=== PATIENT | female | born 1935 | race Caucasian/White ===

== ENCOUNTER 2020-11-30 11:57 | Emergency (ER) | payer MEDICARE ==
[~2020-11-30] VITALS: Ht 165.1 cm; Wt 68.0 kg
[2020-11-30] MEDS ORDERED: LEVO-T100 MCG PO (12:39)
[2020-11-30 16:38] VITALS: BP 157/68
== END 2020-11-30 16:38 | disposition home or self-care (01) ==
LOC: M.ERS 11:57
DX: S01.01XA Laceration without foreign body of scalp, initial encounter (principal); Z88.2 Allergy status to sulfonamides; Z88.1 Allergy status to other antibiotic agents; Z88.8 Allergy status to other drugs, medicaments and biological substances; W18.39XA Other fall on same level, initial encounter; Y93.89 Activity, other specified; Y92.89 Other specified places as the place of occurrence of the external cause; Y99.8 Other external cause status

== ENCOUNTER 2020-12-07 06:56 | Emergency (ER) | payer MEDICARE ==
[~2020-12-07] VITALS: Ht 165.1 cm; Wt 68.0 kg
[~2020-12-07 06:56] MED LIST: LEVO-T100 MCG PO
[2020-12-07 07:25] VITALS: BP 179/80
== END 2020-12-07 07:25 | disposition home or self-care (01) ==
LOC: M.ERS 06:56
DX: S01.01XD Laceration without foreign body of scalp, subsequent encounter (principal); E03.9 Hypothyroidism, unspecified; Z88.2 Allergy status to sulfonamides; Z88.1 Allergy status to other antibiotic agents; Z88.8 Allergy status to other drugs, medicaments and biological substances; X58.XXXD Exposure to other specified factors, subsequent encounter